=== PATIENT | male | born 1970 | race Caucasian/White ===

== ENCOUNTER 2016-11-19 16:02 | Emergency (ER) | payer OTHER ==
[2016-11-19] MEDS ORDERED: Lidocaine 1% 50 ML MDV INJECT ONE (16:26)
[2016-11-19] MEDS ORDERED: Diphtheria,Pertussis(Acell),Tetanus Vaccine 0.5 ML SDV inactive IM ONE (16:27)
--- NOTE | 2016-11-19 16:30 | EDM.PDOC ---
ED HPI Skin/Rash - General Chief Complaint: Laceration Stated Complaint: LT THUMB LAC Time Seen by Provider: 11/19/16 16:15 - History of Present Illness INITIAL COMMENTS - FREE TEXT/NARRATIVE: 45-year-old male presents emergency room after injuring his left thumb with a table saw. This occurred about 30 minutes prior to arrival the patient was taken down one by one and it jumped and his left thumb hit the moving blade. The patient had his last tetanus shot on Jan 04 2015. - Related Data Allergies Allergy/AdvReac Type Severity Reaction Status Date / Time No Known Allergies Allergy Verified 05/07/14 14:21 Home Meds: Ambulatory Orders Medication Instructions Recorded Confirmed Esomeprazole Magnesium [Nexium] 1 cap PO DAILY 05/07/14 11/19/16 Levothyroxine Sodium [Synthroid] 1 tab PO DAILY 05/07/14 11/19/16 Folic Acid. 1 tab PO DAILY 11/19/16 Social & Family History - Tobacco Use Smoking Status *Q: Never Smoker Second Hand Smoke Exposure: No - Alcohol Use Days Per Week of Alcohol Use: 2 Number of Drinks Per Day: 2 Total Drinks Per Week: 4 - Recreational Drug Use Recreational Drug Use: No Drug Use in Last 12 Months: No ED ROS GENERAL - Review of Systems Review Of Systems: See Below Constitutional: Reports: no symptoms HEENT: Reports: Vertigo Cardiovascular: Reports: No symptoms GI/Abdominal: Reports: No symptoms ED EXAM, SKIN/RASH Exam: See Below Exam Limited By: No limitations General Appearance: alert, no apparent distress Respiratory/Chest: no respiratory distress, lungs clear, normal breath sounds Cardiovascular: regular rate, rhythm, no edema, no murmur Extremities: other (This is a laceration over the radial aspect of his thumb. The palmar nerve appears to be intact he may have clipped the end of the dorsal nerve capillary refill is normal. He has a little bit of numbness along the dorsal radial proximal nail plate back to the area of the laceration. Flexion and extension appears to be intact of the interphalangeal joint.) ED SKIN PROCEDURES - Laceration/Wound Repair Left Finger Lac/wound length in cm: 3 Appearance: subcutaneous Distal NVT: no tendon injury, other (The dorsal digital nerve may be involved) Anesthetic type: digital Local anesthesia - Lidocaine (Xylocaine): 1% plain Local anesthetic volume: 3cc Skin prep: chlorhexidine (hibiciens), saline Exploration/Debridement/Repair: wound explored, in a bloodless field, explored to base, moderate debridement, no foreign material found, wound margins revised Closed with: sutures Suture size: 3-0 # of sutures: 6 Suture type: nylon Tetanus status addressed: Other (Juan M status is up-to-date) Complications: No Course - Vital Signs Last Recorded V/S: Last Vital Signs Temp Pulse 68 11/19/16 16:21 Resp 16 11/19/16 16:21 BP 140/85 11/19/16 16:21 Pulse Ox 98 11/19/16 16:21 - Orders/Labs/Meds Orders: Active Orders 24 hr Category Date Time Status Vaccines to be Administered [RC] PER UNIT ROUTINE Care 11/19/16 16:27 Active Fingers Thumb Lt FA [CR] Stat Exams 11/19/16 16:25 Taken Meds: Medications Discontinued Medications Generic Name Dose Route Start Last Admin Trade Name Freq PRN Reason Stop Dose Admin Diphtheria/Tetanus/Acell Pertussis 0.5 ml 11/19/16 16:27 11/19/16 17:08 Boostrix IM 11/19/16 16:28 Not Given .ONCE ONE Diphtheria/Tetanus/Acell Pertussis Confirm 11/19/16 17:15 11/19/16 17:18 Boostrix Administered 11/19/16 17:16 Not Given Dose 0.5 ml .ROUTE .STK-MED ONE Lidocaine HCl 50 ml 11/19/16 16:26 11/19/16 17:07 Xylocaine 1% INJECT 11/19/16 16:27 50 ml ONETIME ONE Administration - Re-Assessments/Exams Free Text/Narrative Re-Assessment/Exam: 11/19/16 17:37 X-ray examination shows no foreign bodies. No bone involvement. Departure - Departure Time of Disposition: 17:39 Disposition: Home, Self-Care 01 Clinical Impression: Thumb laceration Forms: ED Department Discharge Additional Instructions: Return to the emergency room with any questions or problems. Return to the emergency room with any signs of infection or worsening pain. It's possible leave the dressing on for 24 hours that was applied in the emergency room. Use your thumb splint for 7 days. Use longer if needed. Keep your thumb completely clean and dry for the next 24 hours. After this he may wet water gently run over it for a very short period of time and then gently dab dry. You have been started on cephalexin, or Keflex. This is an antibiotic. Take 1-4 times a day for 5 days. Suture removal in 14 days this can be done at the hospital clinic at no additional charge. [id number] - My Orders Last 24 Hours: My Active Orders 11/19/16 16:25 Fingers Thumb Lt FA [CR] Stat 11/19/16 16:27 Vaccines to be Administered [RC] PER UNIT ROUTINE - Assessment/Plan Last 24 Hours: My Active Orders 11/19/16 16:25 Fingers Thumb Lt FA [CR] Stat 11/19/16 16:27 Vaccines to be Administered [RC] PER UNIT ROUTINE
[2016-11-19] MEDS ORDERED: Diphtheria,Pertussis(Acell),Tetanus Vaccine 0.5 ML SDV inactive ONE (17:15)
[2016-11-19 18:12] VITALS: BP 133/77
--- NOTE | 2016-11-20 08:33 | CR ---
Left thumb: Three views of the left thumb were obtained. Comparison: No previous thumb study. Soft tissue injury is identified. Joint spaces are maintained. No acute fracture or other bony abnormality is seen. Impression: 1. Soft tissue injury. No acute bony abnormality identified on left thumb exam. Diagnostic code #2
== END 2016-11-19 18:05 | disposition home or self-care (01) ==
LOC: JD.ED 16:02
DX: S61.012A Laceration without foreign body of left thumb without damage to nail, initial encounter (principal); W29.8XXA Contact with other powered hand tools and household machinery, initial encounter; Z79.899 Other long term (current) drug therapy
CPT/HCPCS: 12002; 73140-26-FA; 73140-FA; 99283; 99283-25

== ENCOUNTER 2018-11-10 17:12 | Inpatient (IN) | payer OTHER ==
[2018-11-10] MEDS ORDERED: Rivaroxaban 10 MG Tab PO STA (17:51)
[2018-11-10] MEDS ORDERED: Diltiazem 50 MG/10 ML SDV IVPUSH STA (17:51)
--- NOTE | 2018-11-10 17:54 | EDM.PDOC ---
ED HPI GENERAL MEDICAL PROBLEM - General Chief Complaint: Cardiovascular Problem Stated Complaint: SOB,HBP Time Seen by Provider: 11/10/18 17:27 Source of Information: Reports: Patient, RN Notes Reviewed History Limitations: Reports: No Limitations - History of Present Illness INITIAL COMMENTS - FREE TEXT/NARRATIVE: The patient states that he developed sudden-onset shortness of breath and the sensation of anxiety around 13:00 this afternoon. He states that he did not exactly feel palpitations, but he checked his pulse and found it to be fast and irregular. He has been feeling diaphoretic. No recent chest discomfort or pain, and no nausea. No prior similar symptoms. The patient states that he has a history of obstructive sleep apnea, but that he is noncompliant with his CPAP. The patient's PCP is Dr. Adkins. - Related Data Allergies Allergy/AdvReac Type Severity Reaction Status Date / Time No Known Allergies Allergy Verified 05/07/14 14:21 Home Meds: Home Meds Esomeprazole Magnesium [Nexium] 1 cap PO DAILY 05/07/14 [History] Levothyroxine Sodium [Synthroid] 175 mcg PO DAILY 05/07/14 [History] Folic Acid. 1 tab PO DAILY 11/19/16 [History] Methotrexate 25 mg IM ASDIRECTED 11/10/18 [History] Past Medical History HEENT History: Reports: Impaired Vision Other HEENT History: wears glasses Respiratory History: Reports: Sleep Apnea (untreated) Gastrointestinal History: Reports: GERD Musculoskeletal History: Reports: Fracture (left wrist), RA Endocrine/Metabolic History: Reports: Hypothyroidism, Obesity/BMI 30+ - Infectious Disease History Infectious Disease History: Reports: Chicken Pox - Past Surgical History HEENT Surgical History: Reports: Oral Surgery (wisdom teeth extraction) Social & Family History - Family History Family Medical History: Noncontributory - Tobacco Use Smoking Status *Q: Never Smoker - Alcohol Use Alcohol Use History: Yes Alcohol Use Frequency: Socially (occasionally to excess) - Recreational Drug Use Recreational Drug Use: No - Living Situation & Occupation Living situation: Reports: , with Spouse, with Family (1 daughter) 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 ED EXAM, GENERAL - Physical Exam Exam: See Below Exam Limited By: No Limitations General Appearance: Alert, WD/WN, No Apparent Distress Eye Exam: Bilateral Eye: EOMI, Normal Inspection Ears: Normal External Exam, Hearing Grossly Normal Nose: Normal Inspection Throat/Mouth: Normal Inspection, Normal Lips, Normal Voice, No Airway Compromise Head: Atraumatic, Normocephalic Neck: Normal Inspection, Full Range of Motion Respiratory/Chest: No Respiratory Distress, Lungs Clear, Normal Breath Sounds, No Accessory Muscle Use Cardiovascular: Normal Peripheral Pulses, No Edema, No Gallop, No JVD, No Murmur , No Rub, Tachycardia, Irregularly Irregular Peripheral Pulses: 4+: Radial (L), Radial (R) GI/Abdominal: Normal Bowel Sounds, Soft, Non-Tender, No Organomegaly, No Distention, No Abnormal Bruit, No Mass, Other (Obese) (Male) Exam: Deferred Rectal (Males) Exam: Deferred Back Exam: Normal Inspection, Full Range of Motion, NT Extremities: Normal Inspection, Normal Range of Motion, No Pedal Edema, Normal Capillary Refill Neurological: Alert, Oriented, Normal Cognition, No Motor/Sensory Deficits Psychiatric: Normal Affect Skin Exam: Warm, Dry, Intact, Normal Color, No Rash EKG INTERPRETATION EKG Date: 11/10/18 Time: 17:41 Rhythm: A-Fib Rate (Beats/Min): 135 [place]: Normal P-Wave: Absent QRS: Normal (Late transition) ST-T: Normal QT: Normal Comparison: NA - No Prior EKG Course - Vital Signs Last Recorded V/S: Last Vital Signs Temp 36.6 C 11/10/18 17:19 Pulse 89 11/10/18 17:19 Resp 16 11/10/18 17:19 BP 122/87 11/10/18 17:19 Pulse Ox 97 11/10/18 17:19 - Orders/Labs/Meds Orders: Active Orders 24 hr Category Date Time Status EKG Documentation Completion [RC] ASDIRECTED Care 11/10/18 17:28 Active Chest 1V Frontal [CR] Stat Exams 11/10/18 17:50 Taken Diltiazem 125 mg Med 11/10/18 18:00 Active Sodium Chloride 0.9% [Normal Saline] 100 ml IV TITRATE EKG 12 Lead [EK] Stat Ther 11/10/18 17:28 Ordered Medication Orders Diltiazem HCl 125 mg/ Sodium (Chloride) 125 mls @ 10 mls/hr IV TITRATE YIFAN; Protocol Last Admin: 11/10/18 18:06 Dose: 10 mg/hr, 10 mls/hr Labs: Laboratory Tests 11/10/18 11/10/18 11/10/18 Range/Units 17:33 17:33 17:33 WBC 6.94 (4.23-9.07) K/mm3 RBC 4.63 (4.63-6.08) M/mm3 Hgb 14.9 (13.7-17.5) gm/L Hct 43.6 (40.1-51.0) % MCV 94.2 H (79.0-92.2) fl MCH 32.2 (25.7-32.2) pg MCHC 34.2 (32.2-35.5) g/dl RDW Std Deviation 43.7 (35.1-43.9) fL Plt Count 283 (163-337) K/mm3 MPV 9.4 (9.4-12.3) fl Neutrophils % (Manual) 71 H (40-60) % Band Neutrophils % 3 (0-10) % Lymphocytes % (Manual) 23 (20-40) % Atypical Lymphs % 0 % Monocytes % (Manual) 2 (2-10) % Eosinophils % (Manual) 1 (0.8-7.0) % Basophils % (Manual) 0 L (0.2-1.2) Platelet Estimate Adequate RBC Morph Comment Normal PT 10.2 (9.5-12.1) SECONDS INR 0.93 APTT 27 (24-31) SECONDS D-Dimer, Quantitative < 0.19 L (0.19-0.50) mg/L Sodium 142 (136-145) mEq/L Potassium 3.6 (3.5-5.1) mEq/L Chloride 106 (98-107) mEq/L Carbon Dioxide 23 (21-32) mEq/L Anion Gap 16.6 H (5-15) BUN 14 (7-18) mg/dL Creatinine 1.2 (0.7-1.3) mg/dL Est Cr Clr Drug Dosing 89.43 mL/min Estimated GFR (MDRD) > 60 (>60) mL/min BUN/Creatinine Ratio 11.7 L (14-18) Glucose 149 H (74-106) mg/dL Calcium 8.6 (8.5-10.1) mg/dL Total Bilirubin 0.3 (0.2-1.0) mg/dL AST 27 (15-37) U/L ALT 51 (16-63) U/L Alkaline Phosphatase 67 (46-116) U/L Troponin I < 0.017 (0.00-0.056) ng/mL Total Protein 7.1 (6.4-8.2) g/dl Albumin 3.7 (3.4-5.0) g/dl Globulin 3.4 gm/dL Albumin/Globulin Ratio 1.1 (1-2) Meds: Medications Generic Name Dose Route Start Last Admin Trade Name Freq PRN Reason Stop Dose Admin Diltiazem HCl 125 mg/ Sodium 125 mls @ 10 mls/hr 11/10/18 18:00 11/10/18 18: 06 Chloride IV 10 mg/hr TITRATE YIFAN 10 mls/hr Administration Protocol 10 MG/HR Discontinued Medications Generic Name Dose Route Start Last Admin Trade Name Freq PRN Reason Stop Dose Admin Diltiazem HCl 5 mg 11/10/18 17:51 11/10/18 18:02 Cardizem IVPUSH 11/10/18 17:52 5 mg ONETIME STA Administration Rivaroxaban 20 mg 11/10/18 17:51 11/10/18 18:13 Xarelto PO 11/10/18 17:52 20 mg ONETIME STA Administration - Re-Assessments/Exams Free Text/Narrative Re-Assessment/Exam: 11/10/18 17:53 The patient appears to be in new atrial fibrillation with rapid ventricular response. Have ordered a standard workup to evaluate, and in the meantime, the patient will receive 20 mg of oral Xarelto, as well as 5 mg of Cardizem IVP and a Cardizem drip at 10 mg/hr. 11/10/18 18:21 Portable chest radiograph reviewed. There appears to be mild cardiomegaly, but no pulmonary vascular congestion to suggest decompensated CHF. No pleural effusions seen on this AP view. No focal infiltrate. No pneumothorax. Formal read per the Radiologist pending. 11/10/18 18:47 The patient's heart rate is currently down around 100. His workup today is unremarkable. Case discussed with Dr. Wynn at 18:44. Currently the ICU is full, but he will check to see if there is a patient that he can move out to make room for this patient. He will get back to me. 11/10/18 19:[address] Wynn has found a bed in the ICU, therefore the patient will be admitted. Departure - Departure Time of Disposition: 19:05 Disposition: Admitted As Inpatient 67 Condition: Fair Clinical Impression: New onset atrial fibrillation Referrals: Juan Adkins MD [Primary Care Provider] - - My Orders Last 24 Hours: My Active Orders 11/10/18 17:28 EKG Documentation Completion [RC] ASDIRECTED EKG 12 Lead [EK] Stat 11/10/18 17:50 Chest 1V Frontal [CR] Stat 11/10/18 18:00 Diltiazem 125 mg Sodium Chloride 0.9% [Normal Saline] 100 ml IV TITRATE - Assessment/Plan Last 24 Hours: My Active Orders 11/10/18 17:28 EKG Documentation Completion [RC] ASDIRECTED EKG 12 Lead [EK] Stat 11/10/18 17:50 Chest 1V Frontal [CR] Stat 11/10/18 18:00 Diltiazem 125 mg Sodium Chloride 0.9% [Normal Saline] 100 ml IV TITRATE
[2018-11-10] MEDS ORDERED: Diltiazem 125 MG in Sodium Chloride 0.9% 100 ML IV SCH (18:00)
[2018-11-10] MEDS ORDERED: hydrALAZINE 20 MG/ML SDV IVPUSH PRN (20:47)
[2018-11-10] MEDS ORDERED: Metoprolol Tartrate 5 MG/5 ML SDV IVPUSH PRN (20:47)
[2018-11-10] MEDS ORDERED: LORazepam 2 MG/ML SDV IVPUSH PRN (20:47)
[2018-11-10] MEDS ORDERED: Albuterol/Ipratropium 3.0-0.5 MG/3 ML Neb Soln NEB PRN (20:48)
[2018-11-10] MEDS ORDERED: Acetaminophen 325 MG Tab PO PRN (20:48)
[2018-11-10] MEDS ORDERED: Polyethylene Glycol 3350 Powder 17 GM Packet PO PRN (20:48)
[2018-11-10] MEDS ORDERED: Ondansetron 4 MG/2 ML SDV IV PRN (20:48)
[2018-11-10] MEDS ORDERED: HYDROmorphone 1 MG/ML Syringe IVPUSH PRN (20:48)
[2018-11-10] MEDS ORDERED: Docusate Sodium 100 MG Cap PO PRN (20:48)
[2018-11-10] MEDS ORDERED: LORazepam 2 MG/ML SDV IV PRN (20:48)
[2018-11-10] MEDS ORDERED: Acetaminophen/HYDROcodone 325-5 MG Tab PO PRN (20:48)
[2018-11-10] MEDS ORDERED: Bisacodyl 5 MG Tab PO PRN (20:48)
[2018-11-10] MEDS ORDERED: Diltiazem 180 MG Cap.CD PO ONE (20:57)
[2018-11-10] MEDS ORDERED: METHOTREXATE 25 MG IM SCH (21:00)
[2018-11-10] MEDS: Potassium Chloride 10 MEQ Tab.ER PO SCH (22:17)
--- NOTE | 2018-11-10 22:35 | PCM.HP ---
H&P History of Present Illness - General Date of Service: 11/10/18 Admit Problem/Dx: Admission Diagnosis/Problem Admission Diagnosis/Problem Atrial fibrillation Source of Information: Patient, Family, Old Records, RN Notes Reviewed History Limitations: Reports: No Limitations - History of Present Illness Initial Comments - Free Text/Narative: This is a 47 yo white male with past medical hx/o RA on MTX, Hypothyroidism, GERD, PAUL non-compliant with CPAP and Obesity, who comes in for sudden onset of short of breath associated with anxiety and diaphoresis that took place this afternoon. He denies having heart palpitations but he felt has had fast and irregular rate when he checked his heart rate. He denies any chest pain and report no prior hx/o it in the past. His initial work up in ED shows a CBC remarkable for MCV of 94.2, and Neutrophils of 71%. His coagulation studies are wnl. His Chemistry is significant for AG of 16.6, and BS of 149. His initial EKG shows atrial fibrillation with a rate of 135. Patient received initial treatment in ED before he was sent to the unit for further management. He is being admitted for new onset of atrial fibrillation. - Related Data Allergies/Adverse Reactions: Allergies Allergy/AdvReac Type Severity Reaction Status Date / Time No Known Allergies Allergy Verified 11/10/18 22:40 Home Medications: Home Meds Esomeprazole Magnesium [Nexium] 1 cap PO DAILY 05/07/14 [History] Levothyroxine Sodium [Synthroid] 175 mcg PO DAILY 05/07/14 [History] Folic Acid. 1 tab PO DAILY 11/19/16 [History] Methotrexate 25 mg IM ASDIRECTED 11/10/18 [History] Past Medical History HEENT History: Reports: Impaired Vision Other HEENT History: wears glasses Respiratory History: Reports: Sleep Apnea Gastrointestinal History: Reports: GERD Musculoskeletal History: Reports: Fracture, RA Endocrine/Metabolic History: Reports: Hypothyroidism, Obesity/BMI 30+ - Infectious Disease History Infectious Disease History: Reports: Chicken Pox - Past Surgical History HEENT Surgical History: Reports: Oral Surgery Social & Family History - Family History Family Medical History: Noncontributory - Tobacco Use Smoking Status *Q: Never Smoker Used Tobacco, but Quit: No - Caffeine Use Caffeine Use: Reports: Coffee - Recreational Drug Use Recreational Drug Use: No - Living Situation & Occupation Living situation: Reports: , with Spouse, with Family (1 daughter) 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 Exam - Exam Exam: See Below - Vital Signs Vital Signs: Last Vital Signs Temp 36.6 C 11/10/18 21:56 Pulse 84 11/10/18 21:56 Resp 10 L 11/10/18 21:56 BP 126/82 11/10/18 21:56 Pulse Ox 96 11/10/18 21:56 Weight: 138.346 kg - Exam General: Alert, Oriented, Cooperative, Mild Distress, Other (Obese) HEENT: Conjunctiva Clear, EACs Clear, EOMI, Hearing Intact, Mucosa Moist & [place] , Nares Patent, Normal Nasal Septum, Posterior Pharynx Clear, Pupils Equal, Pupils Reactive Neck: Supple, Trachea Midline, Other (short and thick) Lungs: Clear to Auscultation, Normal Respiratory Effort Cardiovascular: Irregular Rhythm GI/Abdominal Exam: Normal Bowel Sounds, Soft, Non-Tender, No Organomegaly, No Distention, No Abnormal Bruit (Male) Exam: Deferred Rectal (Males) Exam: Deferred Back Exam: Normal Inspection, Full Range of Motion Extremities: Normal Inspection, Normal Range of Motion, Non-Tender, No Pedal Edema, Normal Capillary Refill Peripheral Pulses: 3+: Posterior Tibial (L), Posterior Tibial (R), Dorsalis Pedis (L), Dorsalis Pedis (R) Skin: Warm, Dry, Intact Neuro Extensive - Mental Status: Oriented x3, Normal Mood/Affect, Memory Intact Neuro Extensive - Motor, Sensory, Reflexes: CN II-XII Intact, Normal Gait Psychiatric: Alert, Normal Affect, Normal Mood - Patient Data Lab Results Last 24 hrs: Laboratory Results - last 24 hr 11/10/18 11/10/18 11/10/18 Range/Units 17:33 17:33 17:33 WBC 6.94 (4.23-9.07) K/mm3 RBC 4.63 (4.63-6.08) M/mm3 Hgb 14.9 (13.7-17.5) gm/L Hct 43.6 (40.1-51.0) % MCV 94.2 H (79.0-92.2) fl MCH 32.2 (25.7-32.2) pg MCHC 34.2 (32.2-35.5) g/dl RDW Std Deviation 43.7 (35.1-43.9) fL Plt Count 283 (163-337) K/mm3 MPV 9.4 (9.4-12.3) fl Neutrophils % (Manual) 71 H (40-60) % Band Neutrophils % 3 (0-10) % Lymphocytes % (Manual) 23 (20-40) % Atypical Lymphs % 0 % Monocytes % (Manual) 2 (2-10) % Eosinophils % (Manual) 1 (0.8-7.0) % Basophils % (Manual) 0 L (0.2-1.2) Platelet Estimate Adequate RBC Morph Comment Normal PT 10.2 (9.5-12.1) SECONDS INR 0.93 APTT 27 (24-31) SECONDS D-Dimer, Quantitative < 0.19 L (0.19-0.50) mg/L Sodium 142 (136-145) mEq/L Potassium 3.6 (3.5-5.1) mEq/L Chloride 106 (98-107) mEq/L Carbon Dioxide 23 (21-32) mEq/L Anion Gap 16.6 H (5-15) BUN 14 (7-18) mg/dL Creatinine 1.2 (0.7-1.3) mg/dL Est Cr Clr Drug Dosing 89.43 mL/min Estimated GFR (MDRD) > 60 (>60) mL/min BUN/Creatinine Ratio 11.7 L (14-18) Glucose 149 H (74-106) mg/dL Calcium 8.6 (8.5-10.1) mg/dL Total Bilirubin 0.3 (0.2-1.0) mg/dL AST 27 (15-37) U/L ALT 51 (16-63) U/L Alkaline Phosphatase 67 (46-116) U/L Troponin I < 0.017 (0.00-0.056) ng/mL Total Protein 7.1 (6.4-8.2) g/dl Albumin 3.7 (3.4-5.0) g/dl Globulin 3.4 gm/dL Albumin/Globulin Ratio 1.1 (1-2) Free T4 (0.76-1.46) ng/dL TSH 3rd Generation (0.358-3.74) uIU/mL 11/10/18 Range/Units 17:33 WBC (4.23-9.07) K/mm3 RBC (4.63-6.08) M/mm3 Hgb (13.7-17.5) gm/L Hct (40.1-51.0) % MCV (79.0-92.2) fl MCH (25.7-32.2) pg MCHC (32.2-35.5) g/dl RDW Std Deviation (35.1-43.9) fL Plt Count (163-337) K/mm3 MPV (9.4-12.3) fl Neutrophils % (Manual) (40-60) % Band Neutrophils % (0-10) % Lymphocytes % (Manual) (20-40) % Atypical Lymphs % % Monocytes % (Manual) (2-10) % Eosinophils % (Manual) (0.8-7.0) % Basophils % (Manual) (0.2-1.2) Platelet Estimate RBC Morph Comment PT (9.5-12.1) SECONDS INR APTT (24-31) SECONDS D-Dimer, Quantitative (0.19-0.50) mg/L Sodium (136-145) mEq/L Potassium (3.5-5.1) mEq/L Chloride (98-107) mEq/L Carbon Dioxide (21-32) mEq/L Anion Gap (5-15) BUN (7-18) mg/dL Creatinine (0.7-1.3) mg/dL Est Cr Clr Drug Dosing mL/min Estimated GFR (MDRD) (>60) mL/min BUN/Creatinine Ratio (14-18) Glucose (74-106) mg/dL Calcium (8.5-10.1) mg/dL Total Bilirubin (0.2-1.0) mg/dL AST (15-37) U/L ALT (16-63) U/L Alkaline Phosphatase (46-116) U/L Troponin I (0.00-0.056) ng/mL Total Protein (6.4-8.2) g/dl Albumin (3.4-5.0) g/dl Globulin gm/dL Albumin/Globulin Ratio (1-2) Free T4 0.85 (0.76-1.46) ng/dL TSH 3rd Generation 2.720 (0.358-3.74) uIU/mL Result Diagrams: 11/10/18 17:33 11/10/18 17:33 EKG INTERPRETATION EKG Date: 11/10/18 Time: 17:41 Rhythm: A-Fib Rate (Beats/Min): 135 Gay: Normal P-Wave: Absent QRS: Normal ST-T: Normal QT: Normal Comparison: NA - No Prior EKG Problem List Initiated/Reviewed/Updated: Yes Orders Last 24hrs: Active Orders 24 hr Category Date Time Status Patient Status [ADT] Routine ADT 11/10/18 21:25 Active Cardiac Monitoring [RC] CONTINUOUS Care 11/10/18 20:48 Active EKG Documentation Completion [RC] ASDIRECTED Care 11/10/18 17:28 Active Height and Weight [RC] DAILY Care 11/10/18 20:48 Active Intake and Output [RC] 04,16 Care 11/10/18 20:48 Active Oxygen Therapy [RC] PRN Care 11/10/18 20:48 Active RT Aerosol Therapy [RC] ASDIRECTED Care 11/10/18 20:52 Active Up ad Ivon [RC] ASDIRECTED Care 11/10/18 20:48 Active VTE/DVT Education [RC] ,21 Care 11/10/18 20:48 Active Vital Signs [RC] Q4HR Care 11/10/18 20:48 Active Consult to Case Management/Painter And Decorator [CONS] Cons 11/10/18 20:48 Active Routine Regular Diet [DIET] Diet 11/10/18 Dinner Active Chest 1V Frontal [CR] Stat Exams 11/10/18 17:50 Taken BASIC METABOLIC PANEL,BMP [CHEM] AM Lab 11/11/18 05:11 Ordered CBC WITH AUTO DIFF [HEME] AM Lab 11/11/18 05:11 Ordered DRUG SCREEN, URINE REFLEX [URCHEM] Stat Lab 11/10/18 21:56 Ordered MAGNESIUM [CHEM] AM Lab 11/11/18 05:11 Ordered Acetaminophen [Tylenol] Med 11/10/18 20:48 Active 650 mg PO Q4H PRN Acetaminophen/HYDROcodone [Wilmer 325-5 MG] Med 11/10/18 20:48 Active 1 tab PO Q4H PRN Albuterol/Ipratropium [DuoNeb 3.0-0.5 MG/3 ML] Med 11/10/18 20:48 Active 3 ml NEB Q4H PRN Bisacodyl [Dulcolax] Med 11/10/18 20:48 Active 5 mg PO DAILY PRN Diltiazem 125 mg Med 11/10/18 18:00 Active Sodium Chloride 0.9% [Normal Saline] 100 ml IV TITRATE Diltiazem [Cardizem CD] Med 11/11/18 09:00 Active 180 mg PO DAILY Docusate Sodium [Colace] Med 11/10/18 20:48 Active 100 mg PO BID PRN Docusate Sodium/Sennosides [Senna Plus] Med 11/10/18 20:48 Active 1 tab PO BID PRN Folic Acid. Med 11/11/18 09:00 Pending 1 tab PO DAILY HYDROmorphone [Dilaudid] Med 11/10/18 20:48 Active 0.25 mg IVPUSH Q2H PRN LORazepam [Ativan] Med 11/10/18 20:48 Active 1 mg IV Q6H PRN LORazepam [Ativan] Med 11/10/18 20:47 Active 2 mg IVPUSH Q4H PRN Levothyroxine Med 11/11/18 06:00 Active 175 mcg PO ACBREAKFAST Methotrexate Med 11/10/18 21:00 Pending 25 mg IM ASDIRECTED Metoprolol Tartrate [Lopressor] Med 11/10/18 20:47 Active 5 mg IVPUSH Q4H PRN Ondansetron [Zofran] Med 11/10/18 20:48 Active 4 mg IV Q6H PRN Pantoprazole [ProTONIX] Med 11/11/18 07:00 Active 40 mg PO DAILY@0700 Pharmacy to Dose - Magnesium R [Pharmacy to Dose - Med 11/10/18 21:00 Pending Magnesium Replacement] 1 dose .XX ASDIRECTED Pharmacy to Dose - Potassium R [Pharmacy to Dose - Med 11/10/18 21:00 Pending Potassium Replacement] 1 dose .XX ASDIRECTED Polyethylene Glycol 3350 [MiraLAX] Med 11/10/18 20:48 Active 17 gm PO DAILY PRN Potassium Chloride [Klor-Con 10] Med 11/10/18 22:00 Active 40 meq PO Q4H Rivaroxaban [Xarelto] Med 11/11/18 09:00 Active 20 mg PO DAILY Temazepam [Restoril] Med 11/10/18 20:48 Active 15 mg PO BEDTIME PRN hydrALAZINE [Apresoline] Med 11/10/18 20:47 Active 20 mg IVPUSH Q4H PRN Resuscitation Status Routine Resus Stat 11/10/18 20:48 Ordered EKG 12 Lead [EK] Stat Ther 11/10/18 17:28 Ordered Medication Orders Acetaminophen (Tylenol) 650 mg PO Q4H PRN PRN Reason: Pain (Mild 1-3)/fever Hydrocodone Bitart/Acetaminophen (Wilmer 325-5 Mg) 1 tab PO Q4H PRN PRN Reason: Pain (moderate 4-6) Albuterol/Ipratropium (Duoneb 3.0-0.5 Mg/3 Ml) 3 ml NEB Q4H PRN PRN Reason: Shortness Of Breath/wheezing Bisacodyl (Dulcolax) 5 mg PO DAILY PRN PRN Reason: Constipation Diltiazem HCl (Cardizem Cd) 180 mg PO DAILY YIFAN Docusate Sodium (Colace) 100 mg PO BID PRN PRN Reason: Constipation Hydralazine HCl (Apresoline) 20 mg IVPUSH Q4H PRN PRN Reason: Hypertension Hydromorphone HCl (Dilaudid) 0.25 mg IVPUSH Q2H PRN PRN Reason: Pain (severe 7-10) Diltiazem HCl 125 mg/ Sodium (Chloride) 125 mls @ 10 mls/hr IV TITRATE YIFAN; Protocol Last Admin: 11/10/18 18:06 Dose: 10 mg/hr, 10 mls/hr Levothyroxine Sodium (Levothyroxine) 175 mcg PO ACBREAKFAST YIFAN Lorazepam (Ativan) 2 mg IVPUSH Q4H PRN PRN Reason: Seizures Lorazepam (Ativan) 1 mg IV Q6H PRN PRN Reason: Anxiety Magnesium Sulfate (Pharmacy To Dose - Magnesium Replacement) 1 dose .XX ASDIRECTED YIFAN Metoprolol Tartrate (Lopressor) 5 mg IVPUSH Q4H PRN PRN Reason: Tachycardia Non-Formulary Medication (Folic Acid.) 1 tab PO DAILY YIFAN Non-Formulary Medication (Methotrexate) 25 mg IM ASDIRECTED YIFAN Ondansetron HCl (Zofran) 4 mg IV Q6H PRN PRN Reason: Nausea/Vomiting Pantoprazole Sodium (Protonix) 40 mg PO DAILY@0700 [facility] Polyethylene Glycol (Miralax) 17 gm PO DAILY PRN PRN Reason: Constipation Potassium Chloride (Pharmacy To Dose - Potassium Replacement) 1 dose .XX ASDIRECTED [facility] Potassium Chloride (Klor-Con 10) 40 meq PO Q4H YIFAN Stop: 11/11/18 02:01 Last Admin: 11/10/18 22:17 Dose: 40 meq Rivaroxaban (Xarelto) 20 mg PO DAILY [facility] Senna/Docusate Sodium (Senna Plus) 1 tab PO BID PRN PRN Reason: Constipation Temazepam (Restoril) 15 mg PO BEDTIME PRN PRN Reason: Sleep Assessment/Plan Comment:: Assessment/Plan: Acute: A-Fib with RVR - New onset w/ HR as high at 135 - Risk Factors: Untreated PAUL and Stress - Denies taking stimulants and having a lot of stress lately - Not a caffein junkie - Urine Drug Screen and Thyroid Panel - Currently on Cardizem drip - Xarelto 20 mg po daily for Stroke prophylaxis Hyperglycemia - BS 149 - Screen for DM Chronic: GERD Hypothyroidism RA PAUL Class II Obese Plan: Admit to ICU Routine AM Labs A1C check UDS Cardizem drip; switch to oral once rate is controlled 2D echo in AM SW/CM for d/c planning Code status: 1 Updated at bedside with diagnosis, additional tests to run, treatment and discharge care plan.
[2018-11-10] MEDS: Temazepam 15 MG Cap PO PRN (23:15)
[2018-11-11] MEDS: Potassium Chloride 10 MEQ Tab.ER PO SCH (01:24)
[2018-11-11] MEDS: Pantoprazole 40 MG Tab.CR PO SCH (06:20)
--- NOTE | 2018-11-11 07:11 | CR ---
Chest: Portable view of the chest was obtained. Comparison: No prior chest x-ray is available. Heart size and mediastinum are normal. Lungs are clear. Bony structures are unremarkable. Impression: 1. Nothing acute is seen on portable chest x-ray. Diagnostic code #1
--- NOTE | 2018-11-11 07:21 | PCM.PN ---
- General Info Date of Service: 11/11/18 Admission Dx/Problem (Free Text): Admission Diagnosis/Problem Admission Diagnosis/Problem Atrial fibrillation Subjective Update: Follow Up Functional Status: Reports: Pain Controlled, Tolerating Diet, Ambulating, Urinating - Review of Systems General: Denies: Fever, Chills HEENT: Reports: No Symptoms Pulmonary: Denies: Shortness of Breath Cardiovascular: Denies: Chest Pain, Dyspnea on Exertion, Lightheadedness Gastrointestinal: Denies: Abdominal Pain, Nausea, Vomiting Genitourinary: Reports: No Symptoms Skin: Denies: Cyanosis, Mottled, Pallor, Diaphoresis, Bruising Neurological: Denies: Confusion, Dizziness, Difficulty Walking, Weakness, Gait Disturbance Psychiatric: Reports: Anxiety. Denies: Depression, Agitation, Hallucinations Systems Review Comment:: No significant overnight issues. He did not sleep well because the bed is not comfortable for him. His heart rate is controlled at rest and respond with activity or exertion. It goes up to as high at 140s-150s with when he is up and moving. His UDS is negative. - Patient Data Vitals - Most Recent: Last Vital Signs Temp 36.4 C 11/11/18 04:00 Pulse 79 11/11/18 04:00 Resp 15 11/11/18 04:00 BP 129/82 11/11/18 04:00 Pulse Ox 97 11/11/18 04:00 Weight - Most Recent: 138.482 kg I&O - Last 24 Hours: Intake & Output 11/10/18 11/11/18 11/11/18 22:59 06:59 14:59 Intake Total 1200 Output Total 250 Balance 950 Lab Results Last 24 Hours: Laboratory Results - last 24 hr 11/10/18 11/10/18 11/10/18 Range/Units 17:33 17:33 17:33 WBC 6.94 (4.23-9.07) K/mm3 RBC 4.63 (4.63-6.08) M/mm3 Hgb 14.9 (13.7-17.5) gm/L Hct 43.6 (40.1-51.0) % MCV 94.2 H (79.0-92.2) fl MCH 32.2 (25.7-32.2) pg MCHC 34.2 (32.2-35.5) g/dl RDW Std Deviation 43.7 (35.1-43.9) fL Plt Count 283 (163-337) K/mm3 MPV 9.4 (9.4-12.3) fl Neut % (Auto) (34.0-67.9) % Lymph % (Auto) (21.8-53.1) % Morris % (Auto) (5.3-12.2) % Eos % (Auto) (0.8-7.0) Baso % (Auto) (0.1-1.2) % Neut # (Auto) (1.78-5.38) K/mm3 Lymph # (Auto) (1.32-3.57) K/mm3 Morris # (Auto) (0.30-0.82) K/mm3 Eos # (Auto) (0.04-0.54) K/mm3 Baso # (Auto) (0.01-0.08) K/mm3 Neutrophils % (Manual) 71 H (40-60) % Band Neutrophils % 3 (0-10) % Lymphocytes % (Manual) 23 (20-40) % Atypical Lymphs % 0 % Monocytes % (Manual) 2 (2-10) % Eosinophils % (Manual) 1 (0.8-7.0) % Basophils % (Manual) 0 L (0.2-1.2) Platelet Estimate Adequate RBC Morph Comment Normal PT 10.2 (9.5-12.1) SECONDS INR 0.93 APTT 27 (24-31) SECONDS D-Dimer, Quantitative < 0.19 L (0.19-0.50) mg/L Sodium 142 (136-145) mEq/L Potassium 3.6 (3.5-5.1) mEq/L Chloride 106 (98-107) mEq/L Carbon Dioxide 23 (21-32) mEq/L Anion Gap 16.6 H (5-15) BUN 14 (7-18) mg/dL Creatinine 1.2 (0.7-1.3) mg/dL Est Cr Clr Drug Dosing 89.43 mL/min Estimated GFR (MDRD) > 60 (>60) mL/min BUN/Creatinine Ratio 11.7 L (14-18) Glucose 149 H (74-106) mg/dL Calcium 8.6 (8.5-10.1) mg/dL Total Bilirubin 0.3 (0.2-1.0) mg/dL AST 27 (15-37) U/L ALT 51 (16-63) U/L Alkaline Phosphatase 67 (46-116) U/L Troponin I < 0.017 (0.00-0.056) ng/mL Total Protein 7.1 (6.4-8.2) g/dl Albumin 3.7 (3.4-5.0) g/dl Globulin 3.4 gm/dL Albumin/Globulin Ratio 1.1 (1-2) Free T4 (0.76-1.46) ng/dL TSH 3rd Generation (0.358-3.74) uIU/mL Urine Opiates Screen (BXMURP=489) Ur Buprenorphine Scrn (CUTOFF=10) Ur Oxycodone Screen (VZD5ZX=090) Urine Methadone Screen (XBM5ZR=028) Ur Propoxyphene Screen (TLENQG=240) Ur Barbiturates Screen (SLIOKE=253) Ur Tricyclics Screen (PVECLQ=066) Ur Phencyclidine Scrn (CUTOFF=25) Ur Amphetamine Screen (FGPGDJ=861) U Methamphetamines Scrn (ZQBCFK=208) U Benzodiazepines Scrn (SOXUAM=138) U Cocaine Metab Screen (VJFCDQ=712) U Marijuana (THC) Screen (CUTOFF=50) 11/10/18 11/10/18 11/11/18 Range/Units 17:33 23:20 05:40 WBC 7.33 (4.23-9.07) K/mm3 RBC 4.71 (4.63-6.08) M/mm3 Hgb 15.2 (13.7-17.5) gm/L Hct 44.7 (40.1-51.0) % MCV 94.9 H (79.0-92.2) fl MCH 32.3 H (25.7-32.2) pg MCHC 34.0 (32.2-35.5) g/dl RDW Std Deviation 44.1 H (35.1-43.9) fL Plt Count 276 (163-337) K/mm3 MPV 9.1 L (9.4-12.3) fl Neut % (Auto) 54.0 (34.0-67.9) % Lymph % (Auto) 32.5 (21.8-53.1) % Morris % (Auto) 10.5 (5.3-12.2) % Eos % (Auto) 2.3 (0.8-7.0) Baso % (Auto) 0.4 (0.1-1.2) % Neut # (Auto) 3.96 (1.78-5.38) K/mm3 Lymph # (Auto) 2.38 (1.32-3.57) K/mm3 Morris # (Auto) 0.77 (0.30-0.82) K/mm3 Eos # (Auto) 0.17 (0.04-0.54) K/mm3 Baso # (Auto) 0.03 (0.01-0.08) K/mm3 Neutrophils % (Manual) (40-60) % Band Neutrophils % (0-10) % Lymphocytes % (Manual) (20-40) % Atypical Lymphs % % Monocytes % (Manual) (2-10) % Eosinophils % (Manual) (0.8-7.0) % Basophils % (Manual) (0.2-1.2) Platelet Estimate RBC Morph Comment PT (9.5-12.1) SECONDS INR APTT (24-31) SECONDS D-Dimer, Quantitative (0.19-0.50) mg/L Sodium (136-145) mEq/L Potassium (3.5-5.1) mEq/L Chloride (98-107) mEq/L Carbon Dioxide (21-32) mEq/L Anion Gap (5-15) BUN (7-18) mg/dL Creatinine (0.7-1.3) mg/dL Est Cr Clr Drug Dosing mL/min Estimated GFR (MDRD) (>60) mL/min BUN/Creatinine Ratio (14-18) Glucose (74-106) mg/dL Calcium (8.5-10.1) mg/dL Total Bilirubin (0.2-1.0) mg/dL AST (15-37) U/L ALT (16-63) U/L Alkaline Phosphatase (46-116) U/L Troponin I (0.00-0.056) ng/mL Total Protein (6.4-8.2) g/dl Albumin (3.4-5.0) g/dl Globulin gm/dL Albumin/Globulin Ratio (1-2) Free T4 0.85 (0.76-1.46) ng/dL TSH 3rd Generation 2.720 (0.358-3.74) uIU/mL Urine Opiates Screen Negative (QBEZLD=147) Ur Buprenorphine Scrn Negative (CUTOFF=10) Ur Oxycodone Screen Negative (TEJ3QM=342) Urine Methadone Screen Negative (YCE2LE=289) Ur Propoxyphene Screen Negative (WXAISZ=461) Ur Barbiturates Screen Negative (OCFYAT=500) Ur Tricyclics Screen Negative (DBGPHH=509) Ur Phencyclidine Scrn Negative (CUTOFF=25) Ur Amphetamine Screen Negative (ZDPVKE=582) U Methamphetamines Scrn Negative (TXVSWV=787) U Benzodiazepines Scrn Negative (CKLTCQ=645) U Cocaine Metab Screen Negative (VTWAUF=659) U Marijuana (THC) Screen Negative (CUTOFF=50) Med Orders - Current: Current Medications Acetaminophen (Tylenol) 650 mg PO Q4H PRN PRN Reason: Pain (Mild 1-3)/fever Hydrocodone Bitart/Acetaminophen ([place] 325-5 Mg) 1 tab PO Q4H PRN PRN Reason: Pain (moderate 4-6) Albuterol/Ipratropium (Duoneb 3.0-0.5 Mg/3 Ml) 3 ml NEB Q4H PRN PRN Reason: Shortness Of Breath/wheezing Bisacodyl (Dulcolax) 5 mg PO DAILY PRN PRN Reason: Constipation Diltiazem HCl (Cardizem Cd) 180 mg PO DAILY [facility] Docusate Sodium (Colace) 100 mg PO BID PRN PRN Reason: Constipation Hydralazine HCl (Apresoline) 20 mg IVPUSH Q4H PRN PRN Reason: Hypertension Hydromorphone HCl (Dilaudid) 0.25 mg IVPUSH Q2H PRN PRN Reason: Pain (severe 7-10) Diltiazem HCl 125 mg/ Sodium (Chloride) 125 mls @ 10 mls/hr IV TITRATE YIFAN; Protocol Last Titration: 11/10/18 21:40 Dose: 0 mg/hr, 0 mls/hr Levothyroxine Sodium (Levothyroxine) 175 mcg PO ACBREAKFAST Y[facility]AN Last Admin: 11/11/18 06:20 Dose: 175 mcg Lorazepam (Ativan) 2 mg IVPUSH Q4H PRN PRN Reason: Seizures Lorazepam (Ativan) 1 mg IV Q6H PRN PRN Reason: Anxiety Magnesium Sulfate (Pharmacy To Dose - Magnesium Replacement) 0 dose .XX ASDIRECTED PRN PRN Reason: RX TO WATCH MAG Metoprolol Tartrate (Lopressor) 5 mg IVPUSH Q4H PRN PRN Reason: Tachycardia Non-Formulary Medication (Folic Acid.) 1 tab PO DAILY [facility] Non-Formulary Medication (Methotrexate) 25 mg IM ASDIRECTED [facility] Ondansetron HCl (Zofran) 4 mg IV Q6H PRN PRN Reason: Nausea/Vomiting Pantoprazole Sodium (Protonix) 40 mg PO DAILY@0700 [facility] Last Admin: 11/11/18 06:20 Dose: 40 mg Polyethylene Glycol (Miralax) 17 gm PO DAILY PRN PRN Reason: Constipation Potassium Chloride (Pharmacy To Dose - Potassium Replacement) 0 dose .XX ASDIRECTED PRN PRN Reason: RX TO WATCH K Rivaroxaban (Xarelto) 20 mg PO DAILY [facility] Senna/Docusate Sodium (Senna Plus) 1 tab PO BID PRN PRN Reason: Constipation Temazepam (Restoril) 15 mg PO BEDTIME PRN PRN Reason: Sleep Last Admin: 11/10/18 23:15 Dose: 15 mg Discontinued Medications Diltiazem HCl (Cardizem) 5 mg IVPUSH ONETIME STA Stop: 11/10/18 17:52 Last Admin: 11/10/18 18:02 Dose: 5 mg Diltiazem HCl (Cardizem Cd) 180 mg PO ONETIME ONE Stop: 11/10/18 20:58 Last Admin: 11/10/18 22:17 Dose: 180 mg Potassium Chloride (Klor-Con 10) 40 meq PO Q4H [facility] Stop: 11/11/18 02:01 Last Admin: 11/11/18 01:24 Dose: 40 meq Rivaroxaban (Xarelto) 20 mg PO ONETIME STA Stop: 11/10/18 17:52 Last Admin: 11/10/18 18:13 Dose: 20 mg - Exam General: Alert, Oriented, Cooperative, No Acute Distress HEENT: Pupils Equal, Pupils Reactive, EOMI, Mucous Membr. Moist/[place]ck: Supple, No JVD, No Thyromegaly, Other (short and somewhat thick) Lungs: Clear to Auscultation, Normal Respiratory Effort Cardiovascular: Irregular Rhythm GI/Abdominal Exam: Normal Bowel Sounds, Soft, Non-Tender, No Organomegaly, No Distention, No Abnormal Bruit (Male) Exam: Deferred Back Exam: Normal Inspection, Full Range of Motion Extremities: Normal Inspection, Normal Range of Motion, Non-Tender, No Pedal Edema, Normal Capillary Refill Peripheral Pulses: 3+: Dorsalis Pedis (L), Dorsalis Pedis (R) Skin: Warm, Dry, Intact Neurological: No New Focal Deficit Psy/Mental Status: Alert, Normal Affect, Normal Mood - Problem List Review Problem List Initiated/Reviewed/Updated: Yes - My Orders Last 24 Hours: My Active Orders 11/10/18 20:47 LORazepam [Ativan] 2 mg IVPUSH Q4H PRN Metoprolol Tartrate [Lopressor] 5 mg IVPUSH Q4H PRN hydrALAZINE [Apresoline] 20 mg IVPUSH Q4H PRN 11/10/18 20:48 Cardiac Monitoring [RC] CONTINUOUS Height and Weight [RC] DAILY Intake and Output [RC] 04,16 Oxygen Therapy [RC] PRN Up ad Ivon [RC] ASDIRECTED VTE/DVT Education [RC] , Vital Signs [RC] Q4HR Consult to Case Management/Physician Primary Care Sports Medicine [CONS] Routine Acetaminophen [Tylenol] 650 mg PO Q4H PRN Acetaminophen/HYDROcodone [[place]rees 325-5 MG] 1 tab PO Q4H PRN Albuterol/Ipratropium [DuoNeb 3.0-0.5 MG/3 ML] 3 ml NEB Q4H PRN Bisacodyl [Dulcolax] 5 mg PO DAILY PRN Docusate Sodium [Colace] 100 mg PO BID PRN Docusate Sodium/Sennosides [Senna Plus] 1 tab PO BID PRN HYDROmorphone [Dilaudid] 0.25 mg IVPUSH Q2H PRN LORazepam [Ativan] 1 mg IV Q6H PRN Ondansetron [Zofran] 4 mg IV Q6H PRN Polyethylene Glycol 3350 [MiraLAX] 17 gm PO DAILY PRN Temazepam [Restoril] 15 mg PO BEDTIME PRN Resuscitation Status Routine 11/10/18 20:52 RT Aerosol Therapy [RC] ASDIRECTED 11/10/18 21:00 Methotrexate 25 mg IM ASDIRECTED Pharmacy to Dose - Magnesium R [Pharmacy to Dose - Magnesium Replacement] 0 dose .XX ASDIRECTED PRN Pharmacy to Dose - Potassium R [Pharmacy to Dose - Potassium Replacement] 0 dose .XX ASDIRECTED PRN 11/10/18 Dinner Regular Diet [DIET] 11/11/18 05:40 BASIC METABOLIC PANEL,BMP [CHEM] AM CBC WITH AUTO DIFF [HEME] AM MAGNESIUM [CHEM] AM 11/11/18 06:00 Levothyroxine 175 mcg PO ACBREAKFAST 11/11/18 07:00 Pantoprazole [ProTONIX] 40 mg PO DAILY@0700 11/11/18 07:14 Echo Comp wo Cont [US] Routine 11/11/18 09:00 Diltiazem [Cardizem CD] 180 mg PO DAILY Folic Acid. 1 tab PO DAILY Rivaroxaban [Xarelto] 20 mg PO DAILY - Plan Plan:: Assessment/Plan: Acute: A-Fib without RVR - New onset w/ HR as high at 135; HR is now fairly controlled - Suspect 2/2 untreated PAUL (he is not using CPAP) - Risk Factors: PAUL and Stress - Denies taking stimulants and having a lot of stress lately - Not a caffein junkie - Urine Drug Screen and Thyroid Panel-both controlled - Repeat EKG shows Afib with HR of 104 - Cardizem drip is now off; Cardizem 240 mg po daily - Xarelto 20 mg po daily for Stroke prophylaxis - Metoprolol 5 mg po IVP PRN for HR > 118 Hyperglycemia - BS 149--> 115 - Screen for DM; pending A1C this AM Query Anxiety - Thyroid panel normal - May consider anti-anxiolytic medications Chronic: GERD Hypothyroidism RA PAUL, he may need to bring in his CPAP (he has not used it in a while i.e.a year ago or longer) - Counseled on LSM - Advised to resume use of CPAP after discharge Class II Obese Plan: He is clinically much better Routine AM Labs A1C level pending Counseled on LSM 2D echo today SW/CM for d/c planning Code status: 1 Updated patient and at bedside with AM labs and treatment plan. He will ambulate later today after he takes his oral pill to see how his heart respond to activity.
[2018-11-11] MEDS: Rivaroxaban 10 MG Tab PO SCH (08:24)
[2018-11-11] MEDS: Diltiazem 240 MG Cap.ER PO SCH (08:24)
[2018-11-11 08:44] LABS: HEMOGLOBIN A1C 5.5 % (4.50-6.20)
[2018-11-11] MEDS ORDERED: Diltiazem 180 MG Cap.CD PO SCH (09:00)
[2018-11-11] MEDS ORDERED: Metoprolol Tartrate 50 MG Tab PO ONE (10:18)
[2018-11-11] MEDS: Folic Acid 1 MG Tab PO SCH (10:43)
[2018-11-11] MEDS ORDERED: Diltiazem IR 60 MG Tab PO ONE (21:00)
[2018-11-11] MEDS: Metoprolol Tartrate 50 MG Tab PO SCH (21:43)
[2018-11-11] MEDS: Temazepam 15 MG Cap PO PRN (21:46)
[2018-11-12] MEDS: Pantoprazole 40 MG Tab.CR PO SCH (06:17)
[2018-11-12] MEDS: Rivaroxaban 10 MG Tab PO SCH (09:10)
[2018-11-12] MEDS: Folic Acid 1 MG Tab PO SCH (09:11)
[2018-11-12] MEDS: Diltiazem 240 MG Cap.ER PO SCH (09:11)
[2018-11-12] MEDS: Metoprolol Tartrate 50 MG Tab PO SCH (09:11)
[2018-11-12 15:34] VITALS: BP 111/66
--- NOTE | 2018-11-12 15:36 | PCM.DCSUM1 ---
Discharge Summary - Hospital Course HPI Initial Comments: This is a 47 yo white male with past medical hx/o RA on MTX, Hypothyroidism, GERD, PAUL non-compliant with CPAP and Obesity, who comes in for sudden onset of short of breath associated with anxiety and diaphoresis that took place this afternoon. He denies having heart palpitations but he felt has had fast and irregular rate when he checked his heart rate. He denies any chest pain and report no prior hx/o it in the past. His initial work up in ED shows a CBC remarkable for MCV of 94.2, and Neutrophils of 71%. His coagulation studies are wnl. His Chemistry is significant for AG of 16.6, and BS of 149. His initial EKG shows atrial fibrillation with a rate of 135. Patient received initial treatment in ED before he was sent to the unit for further management. He is being admitted for new onset of atrial fibrillation. Diagnosis: Stroke: No Modified Yuan Scale: No Symptoms at All Modified Yuan Scale Score: 0 - Discharge Data Discharge Date: 11/12/18 Discharge Disposition: Home, Self-Care 01 Condition: Good - Discharge Diagnosis/Problem(s) (1) PAUL (obstructive sleep apnea) SNOMED Code(s): 64794534 ICD Code: G47.33 - OBSTRUCTIVE SLEEP APNEA (ADULT) (PEDIATRIC) Status: Acute Current Visit: Yes (2) New onset atrial fibrillation SNOMED Code(s): 01336750 ICD Code: I48.91 - UNSPECIFIED ATRIAL FIBRILLATION Status: Chronic Current Visit: Yes (3) Obesity (BMI 30-39.9) SNOMED Code(s): 892774022, 058181671 ICD Code: E66.9 - OBESITY, UNSPECIFIED Status: Acute Current Visit: Yes - Patient Summary/Data Operative Procedure(s) Performed: None Complications: None Consults: Consultations 11/10/18 20:48 Consult to Case Management/Automatic Lump Making Machine Tender [CONS] Routine Labs Pending at D/C: None Recommended Follow-up Testing/Procedures: None Planned Operative Procedure(s) after DC: None Hospital Course: Patient was primarily admitted for medical management of new onset of atrial fibrillation felt to be 2/2 underlying untreated PAUL. He carried a hx/o PAUL but patient never used his CPAP per . His basic work up to include UDS and thyroid panel were all within normal limits. He received initial treatment in ED and in the unit we simply added beta blockade along with stroke prophylactic agent and he responded well to treatment. His heart rate improved to low 80s from 135s at rest and 90s-low hundreds with activity. His hospital course was uncomplicated. Once his 2D echo result came back with no significant acute abnormal findings (obtained via verbal report from Dr. Ronal Anderson), he was then immediately discharge to home. He was advised to comply discharge instructions. He was further advised to follow up with PCP after discharge and most importantly, he was told to come back or seek immediate care should his symptoms persist or get worse. The patient and his expressed understanding and in agreement with the plans as discussed above. All questions were answered. On the day of discharge, we called his PCP, Dr. Adkins, and updated him about patient discharge care plan. - Patient Instructions Diet: Heart Healthy Diet, Usual Diet as Tolerated, Weight Loss Diet Activity: As Tolerated Driving: May Drive Today Notify Provider of: Fever, Increased Pain, Swelling and Redness, Drainage, Nausea and/or Vomiting Other/Special Instructions: - Please take all new medications as directed. - Resume all home medications and routine home activities as tolerated. - Call or follow up with your PCP for any questions or concerns after discharge. - Follow up with your PCP in 1 week. - Come back or seek immediate care should your symptoms persist or get worse - Discharge Plan *PRESCRIPTION DRUG MONITORING PROGRAM REVIEWED*: Not Applicable *COPY OF PRESCRIPTION DRUG MONITORING REPORT IN PATIENT GWEN: Not Applicable Prescriptions/Med Rec: Diltiazem [Dilacor XR] 240 mg PO DAILY #30 cap.er Metoprolol Tartrate [Lopressor] 50 mg PO Q12H #60 tablet Rivaroxaban [Xarelto] 20 mg PO BEDTIME #30 tablet Home Medications: Home Meds Esomeprazole Magnesium [Nexium] 1 cap PO DAILY 05/07/14 [History] Folic Acid. 1 tab PO DAILY 11/19/16 [History] Methotrexate 25 mg IM ASDIRECTED 11/10/18 [History] Diltiazem [Dilacor XR] 240 mg PO DAILY #30 cap.er 11/11/18 [Rx] Levothyroxine Sodium [Synthroid] 175 mcg PO BEDTIME #0 11/11/18 [Rx] Metoprolol Tartrate [Lopressor] 50 mg PO Q12H #60 tablet 11/11/18 [Rx] Rivaroxaban [Xarelto] 20 mg PO BEDTIME #30 tablet 11/11/18 [Rx] Patient Handouts: Rivaroxaban oral tablets, Sleep Apnea, [id number], Atrial Fibrillation, [id number], Obesity, Adult, [id number] Referrals: Juan Adkins MD [Primary Care Provider] - 11/20/18 9:30 am (Please follow up with Dr. Adkins SundayNovember 20 at 9:30 am Consult with your doctor about seeing a Charging Car Operator.) - Discharge Summary/Plan Comment DC Time >30 min.: Yes (35 mins) Discharge Summary/Plan Comment: Discharge to Home - General Info Date of Service: 11/12/18 Admission Dx/Problem (Free Text: Admission Diagnosis/Problem Admission Diagnosis/Problem Atrial fibrillation Subjective Update: Follow Up Functional Status: Reports: Pain Controlled, Tolerating Diet, Ambulating, Urinating. Denies: New Symptoms - Review of Systems General: Denies: Fever, Weakness, Fatigue, Malaise, Chills HEENT: Denies: No Symptoms Pulmonary: Denies: Shortness of Breath, Pleuritic Chest Pain, Cough Cardiovascular: Denies: Chest Pain, Palpitations, Dyspnea on Exertion, Lightheadedness Gastrointestinal: Denies: Abdominal Pain, Constipation, Decreased Appetite, Vomiting Genitourinary: Denies: Dysuria, Burning, Pain, Retention Musculoskeletal: Reports: No Symptoms Skin: Denies: Cyanosis, Mottled, Pallor, Bruising Neurological: Denies: Confusion, Dizziness, Headache, Syncope, Difficulty Walking, Weakness, Gait Disturbance Psychiatric: Denies: Depression, Anxiety, Agitation, Hallucinations Systems Review Comment: No overnight or acute issues. He rested well. He reports of chest pain or palpitations. His heart rate it controlled even with ambulation (80s-low hundreds). He has no new complaints. - Patient Data Vitals - Most Recent: Last Vital Signs Temp 36.2 C 11/12/18 15:28 Pulse 88 11/12/18 15:28 Resp 15 11/12/18 15:28 BP 111/66 11/12/18 15:28 Pulse Ox 98 11/12/18 15:28 Weight - Most Recent: 135.397 kg I&O - Last 24 hours: Intake & Output 11/12/18 11/12/18 11/12/18 06:59 14:59 22:59 Intake Total 800 Balance 800 Med Orders - Current: Current Medications Acetaminophen (Tylenol) 650 mg PO Q4H PRN PRN Reason: Pain (Mild 1-3)/fever Hydrocodone Bitart/Acetaminophen ([place] 325-5 Mg) 1 tab PO Q4H PRN PRN Reason: Pain (moderate 4-6) Albuterol/Ipratropium (Duoneb 3.0-0.5 Mg/3 Ml) 3 ml NEB Q4H PRN PRN Reason: Shortness Of Breath/wheezing Bisacodyl (Dulcolax) 5 mg PO DAILY PRN PRN Reason: Constipation Diltiazem HCl (Dilacor Xr) 240 mg PO DAILY [facility] Last Admin: 11/12/18 09:11 Dose: 240 mg Docusate Sodium (Colace) 100 mg PO BID PRN PRN Reason: Constipation Folic Acid (Folic Acid) 1 mg PO DAILY [facility] Last Admin: 11/12/18 09:11 Dose: 1 mg Hydralazine HCl (Apresoline) 20 mg IVPUSH Q4H PRN PRN Reason: Hypertension Hydromorphone HCl (Dilaudid) 0.25 mg IVPUSH Q2H PRN PRN Reason: Pain (severe 7-10) Diltiazem HCl 125 mg/ Sodium (Chloride) 125 mls @ 10 mls/hr IV TITRATE [facility]; Protocol Last Titration: 11/10/18 21:40 Dose: 0 mg/hr, 0 mls/hr Levothyroxine Sodium (Levothyroxine) 175 mcg PO ACBREAKFAST [facility] Last Admin: 11/12/18 06:17 Dose: 175 mcg Lorazepam (Ativan) 2 mg IVPUSH Q4H PRN PRN Reason: Seizures Lorazepam (Ativan) 1 mg IV Q6H PRN PRN Reason: Anxiety Magnesium Sulfate (Pharmacy To Dose - Magnesium Replacement) 0 dose .XX ASDIRECTED PRN PRN Reason: RX TO WATCH MAG Metoprolol Tartrate (Lopressor) 5 mg IVPUSH Q4H PRN PRN Reason: Tachycardia Metoprolol Tartrate (Lopressor) 50 mg PO Q12H [facility] Last Admin: 11/12/18 09:11 Dose: 50 mg Ondansetron HCl (Zofran) 4 mg IV Q6H PRN PRN Reason: Nausea/Vomiting Pantoprazole Sodium (Protonix) 40 mg PO DAILY@0700 [facility] Last Admin: 11/12/18 06:17 Dose: 40 mg Polyethylene Glycol (Miralax) 17 gm PO DAILY PRN PRN Reason: Constipation Potassium Chloride (Pharmacy To Dose - Potassium Replacement) 0 dose .XX ASDIRECTED PRN PRN Reason: RX TO WATCH K Rivaroxaban (Xarelto) 20 mg PO DAILY [facility] Last Admin: 11/12/18 09:10 Dose: 20 mg Senna/Docusate Sodium (Senna Plus) 1 tab PO BID PRN PRN Reason: Constipation Temazepam (Restoril) 15 mg PO BEDTIME PRN PRN Reason: Sleep Last Admin: 11/11/18 21:46 Dose: 15 mg Discontinued Medications Diltiazem HCl (Cardizem) 5 mg IVPUSH ONETIME STA Stop: 11/10/18 17:52 Last Admin: 11/10/18 18:02 Dose: 5 mg Diltiazem HCl (Cardizem Cd) 180 mg PO ONETIME ONE Stop: 11/10/18 20:58 Last Admin: 11/10/18 22:17 Dose: 180 mg Diltiazem HCl (Cardizem Cd) 180 mg PO DAILY [facility] Diltiazem HCl (Cardizem) 60 mg PO ONETIME ONE Stop: 11/11/18 21:01 Last Admin: 11/11/18 21:43 Dose: 60 mg Metoprolol Tartrate (Lopressor) 50 mg PO ONETIME ONE Stop: 11/11/18 10:19 Last Admin: 11/11/18 10:42 Dose: 50 mg Non-Formulary Medication (Methotrexate) 25 mg IM ASDIRECTED [facility] Potassium Chloride (Klor-Con 10) 40 meq PO Q4H [facility] Stop: 11/11/18 02:01 Last Admin: 11/11/18 01:24 Dose: 40 meq Rivaroxaban (Xarelto) 20 mg PO ONETIME STA Stop: 11/10/18 17:52 Last Admin: 11/10/18 18:13 Dose: 20 mg - Exam General: Reports: Alert, Oriented, Cooperative, No Acute Distress HEENT: Reports: Pupils Equal, Pupils Reactive, EOMI, Mucous Membr. Moist/[place]ck: Reports: Supple Lungs: Reports: Clear to Auscultation, Normal Respiratory Effort Cardiovascular: Reports: Irregular Rhythm GI/Abdominal Exam: Normal Bowel Sounds, Soft, Non-Tender, No Organomegaly, No Distention, No Abnormal Bruit, No Mass (Male) Exam: Deferred Rectal (Males) Exam: Deferred Back Exam: Reports: Normal Inspection, Decreased Range of Motion Extremities: Normal Inspection, Normal Range of Motion, Non-Tender, No Pedal Edema, Normal Capillary Refill Skin: Reports: Warm, Dry, Intact Neurological: Reports: No New Focal Deficit Psy/Mental Status: Reports: Alert, Normal Affect, Normal Mood
== END 2018-11-12 16:28 | disposition home or self-care (01) | DRG 310 ==
LOC: JD.ED 17:12 → JD.ICU 21:25 → JD.MS 11-11 19:55
PROVIDERS: ADMIT Internal Medicine; ATTEND Internal Medicine
DX: I48.91 Unspecified atrial fibrillation (principal); M06.9 Rheumatoid arthritis, unspecified; E03.9 Hypothyroidism, unspecified; K21.9 Gastro-esophageal reflux disease without esophagitis; G47.33 Obstructive sleep apnea (adult) (pediatric); F41.9 Anxiety disorder, unspecified; H54.7 Unspecified visual loss; R73.9 Hyperglycemia, unspecified; E66.9 Obesity, unspecified; Z68.38 Body mass index [BMI] 38.0-38.9, adult; Z79.899 Other long term (current) drug therapy; Z91.19 Patient's noncompliance with other medical treatment and regimen; Z79.52 Long term (current) use of systemic steroids; Z79.890 Hormone replacement therapy
CPT/HCPCS: 36415; 71045; 71045-26; 80048; 80053; 80306; 83036; 83735; 84439; 84443; 84484; 85007; 85025; 85027; 85379; 85610; 85730; 93005; 93010; 93306; 96365; 96366; 99285; 99285-25; A9270-GY; J3490; J7030

== ENCOUNTER 2023-01-04 06:12 | Day surgery (SDC) | payer OTHER ==
[~2023-01-04 06:12] MED LIST: Lactated Ringers 1,000 ML IV SCH; Lidocaine 1%/Sod Bicarbonate in NS 8.4% 1 ML Syringe IDERM PRN; Sodium Chloride 0.9% 10 ML Syringe FLUSH PRN; Sodium Chloride 0.9% 10 ML Syringe FLUSH SCH
[2023-01-04] MEDS ORDERED: Lidocaine 1% 4 ML ONE (06:38)
[2023-01-04] MEDS ORDERED: Propofol 200 MG/20 ML SDV ONE ×2 (06:38→07:43)
[2023-01-04] MEDS ORDERED: fentaNYL 100 MCG/2 ML SDV ONE (06:39)
[2023-01-04] MEDS ORDERED: Ketamine 500 mg/10 ML MDV ONE (07:33)
[2023-01-04 09:17] VITALS: BP 126/76; PULSE 76
== END 2023-01-04 08:50 | disposition home or self-care (01) ==
LOC: JD.SDS 06:12
PROVIDERS: ATTEND Family Medicine
DX: D12.5 Benign neoplasm of sigmoid colon (principal); K21.00 Gastro-esophageal reflux disease with esophagitis, without bleeding; I48.19 Other persistent atrial fibrillation; G47.33 Obstructive sleep apnea (adult) (pediatric); I10 Essential (primary) hypertension; K21.9 Gastro-esophageal reflux disease without esophagitis; E03.9 Hypothyroidism, unspecified; E66.9 Obesity, unspecified; E78.00 Pure hypercholesterolemia, unspecified; F17.220 Nicotine dependence, chewing tobacco, uncomplicated; Z68.41 Body mass index [BMI] 40.0-44.9, adult; Z79.4 Long term (current) use of insulin; Z79.899 Other long term (current) drug therapy; Z79.890 Hormone replacement therapy; Z80.0 Family history of malignant neoplasm of digestive organs
CPT/HCPCS: 43239; 45380; J2704; J3010; J3490; J7120; 00813

== ENCOUNTER 2025-04-28 21:05 | Emergency (ER) | payer OTHER ==
[2025-04-28] MEDS ORDERED: Sodium Chloride 0.9% 10 ML Syringe FLUSH PRN (21:28)
[2025-04-28 21:37] LABS: BASOPHILS ABSOLUTE AUTO 0.0 K/mm3 (0.0-0.2); BASOPHILS PERCENT AUTO 0.3 % (0.0-1.0); EOSINOPHILS ABSOLUTE AUTO 0.1 K/mm3 (0.0-0.4); EOSINOPHILS PERCENT AUTO 1.4 % (0.0-6.0); IMMATURE GRAN ABSOLUTE AUTO 0.01 K/mm3 (0.00-0.05); IMMATURE GRAN PERCENT AUTO 0.2 % (0.0-0.4); LYMPHOCYTES ABSOLUTE AUTO 2.3 K/mm3 (1.0-4.8); LYMPHOCYTES PERCENT AUTO 37.3 % (24.0-44.0); MEAN PLATELET VOLUME 8.9 fl (9.4-12.4); MONOCYTES ABSOLUTE AUTO 0.6 K/mm3 (0.0-0.8); MONOCYTES PERCENT AUTO 9.0 % (0.0-8.0); NEUTROPHILS ABSOLUTE AUTO 3.2 K/mm3 (1.8-7.7); NEUTROPHILS PERCENT AUTO 51.8 % (41.0-71.0); NRBC ABSOLUTE 0.00 (0.00-0.02); NRBC PERCENT 0.0 % (0.0-0.2); PLATELET COUNT,PLT 243 K/mm3 (150-400); RED BLOOD CELL COUNT 4.08 M/mm3 (4.52-5.90); WHITE BLOOD CELL COUNT,WBC 6.24 K/mm3 (3.9-11.3)
[2025-04-28 21:55] LABS: A/G RATIO 1.2 (1-2); ALANINE AMINOTRANSFERASE,ALT 52.0 U/L (16-63); ASPARTATE AMNIOTRANSFERASE,AST 25.0 U/L (15-37); BILIRUBIN TOTAL 0.3 mg/dL (0.2-1.0); BLOOD UREA NITROGEN,BUN 14.0 mg/dL (7-18); CARBON DIOXIDE,CO2 27.0 mEq/L (21-32); CHLORIDE,CL 105.0 mEq/L (98-107); CREATININE 0.9 mg/dL (0.7-1.3); EST CRCL DRUG DOSING (CG) 110.36 mL/min; ESTIMATED GFR 102.0 mL/min (>60); GLUCOSE RANDOM 146.0 mg/dL (70-99); POTASSIUM,K 3.5 mEq/L (3.5-5.1); PROTEIN TOTAL,TP 7.1 g/dl (6.4-8.2); SODIUM,NA 141.0 mEq/L (136-145); TROPONIN I HIGH SENSITIVITY 7.0 pg/mL (<=76)
[2025-04-28 23:13] VITALS: BP 118/72; PULSE 64
== END 2025-04-28 23:12 | disposition home or self-care (01) ==
LOC: JD.ED 21:05
DX: R07.89 Other chest pain (principal); I48.91 Unspecified atrial fibrillation; E78.00 Pure hypercholesterolemia, unspecified; I10 Essential (primary) hypertension; E03.9 Hypothyroidism, unspecified; K21.9 Gastro-esophageal reflux disease without esophagitis; Z79.899 Other long term (current) drug therapy; Z79.890 Hormone replacement therapy
CPT/HCPCS: 36415; 71045; 80053; 83735; 84484; 85025; 93005; 99285; A9270; 93010; 99283